=== PATIENT | female | born 1970 | race Two or more races ===

== ENCOUNTER 2023-07-26 06:30 | Emergency (ER) | payer OTHER ==
[~2023-07-26] VITALS: Ht 165.1 cm; Wt 94.1 kg
[2023-07-26] MEDS ORDERED: KETOROLAC TROMETH 60MG/2ML VIAL IM ONE (07:15)
[2023-07-26 07:40] VITALS: BP 158/92; PULSE 101; RESP 16; TEMP 97.6; O2SAT 95
[2023-07-26] MEDS ORDERED: IBUP-1456 PO (08:44)
[2023-07-26] MEDS ORDERED: CEPH500T PO (08:44)
== END 2023-07-26 09:13 | disposition home or self-care (01) ==
LOC: ER 06:30
DX: S52.122A Displaced fracture of head of left radius, initial encounter for closed fracture (principal); S00.33XA Contusion of nose, initial encounter; S80.02XA Contusion of left knee, initial encounter; S80.01XA Contusion of right knee, initial encounter; Z79.1 Long term (current) use of non-steroidal anti-inflammatories (NSAID); Z79.899 Other long term (current) drug therapy; W01.198A Fall on same level from slipping, tripping and stumbling with subsequent striking against other object, initial encounter; Y93.89 Activity, other specified; Y92.481 Parking lot as the place of occurrence of the external cause; Y99.8 Other external cause status
CPT/HCPCS: 29105; 70160; 73080; 96372; 99284; J1885